=== PATIENT | female | born 1990 | race Caucasian/White ===

== ENCOUNTER 2018-02-10 06:51 | Day surgery (SDC) | payer OTHER ==
[2018-02-06 09:36] LABS: HEMOGLOBIN 13.8 g/dL (12.0-15.5); MEAN CORPUSCULAR HEMOGLOBIN 27.7 pg (27.0-33.4); MEAN CORPUSCULAR HGB CONC 33.6 g/dL (32.0-36.0); MEAN CORPUSCULAR VOLUME 82 fl (80-97); PLATELET COUNT 294 10^3/uL (150-450); RED BLOOD COUNT 4.97 10^6/uL (3.72-5.28); RED CELL DISTRIBUTION WIDTH 14.4 % (11.5-14.0); WHITE BLOOD COUNT 6.2 10^3/uL (4.0-10.5)
[~2018-02-10 06:51] MED LIST: ACETAMINOPHEN 325 MG TABLET PO PRN; DEXAMETHASONE SOD PHOSPHATE INJ 4 MG/1 ML VIAL ONE; FENTANYL CITRATE INJ/PF 100 MCG/2 ML AMPUL ONE; LACTATED RINGERS 1000 ML IV PRN; LIDOCAINE 0.5% INJ-PF (5 MG/ML) 50 ML SDV SUBCUT PRN; LIDOCAINE 2% INJ-PF (20 MG/ML) 10 ML AMPUL ONE; MIDAZOLAM 2 MG/2 ML INJ ONE; ONDANSETRON HCL INJ/PF 4 MG/2 ML SDV ONE; PROPOFOL INJ 200 MG/20 ML VIAL IV ONE
[2018-02-10] MEDS ORDERED: FENTANYL CITRATE INJ/PF 100 MCG/2 ML AMPUL IV PRN ×3 (11:02)
[2018-02-10] MEDS ORDERED: MORPHINE SULFATE 10 MG/ML INJ IV PRN (11:02)
[2018-02-10] MEDS ORDERED: ONDANSETRON HCL INJ/PF 4 MG/2 ML SDV IV PRN (11:02)
[2018-02-10] MEDS ORDERED: PROMETHAZINE HCL INJ 25 MG/1 ML VIAL IV PRN ×2 (11:02)
[2018-02-10] MEDS ORDERED: MEPERIDINE HCL/PF INJ 25 MG/1 ML DISP.SYRIN IV PRN (11:02)
[2018-02-10] MEDS ORDERED: DIPHENHYDRAMINE HCL 50 MG/ML VIAL IV PRN (11:02)
--- NOTE | 2018-02-10 11:26 | Discharge Summary ---
Discharge Summary (SDC) - Discharge Final Diagnosis: internal hemorrhoids, chronic constipation Date of Surgery: 02/10/18 Discharge Date: 02/10/18 Condition: Stable Referrals: RAN LAL [Primary Care Provider] - Discharge Diet: As Tolerated Respiratory Treatments at Home: Deep Breathing/Coughing, Incentive Spirometer Discharge Activity: Activity As Tolerated Home Care Assistance: None Needed Report the Following to Your Physician Immediately: Shortness of Breath, Nausea , Vomiting, Increase in Pain, Fever over 101 Degrees, Unusual Bleeding
--- NOTE | 2018-02-10 11:29 | Operative Report ---
Nonrecallable Operative Report DATE OF SURGERY: 02/10/18 PREOPERATIVE DIAGNOSIS: 1 chronic constipation #2 prolapsing internal hemorrhoids. POSTOPERATIVE DIAGNOSIS: Same as above OPERATION: 1. Aborted colonoscopy (to 90 cm). 2. Rubber band ligation of internal hemorrhoids 4 SURGEON: JONATHAN VERONICA ANESTHESIA: LMAC TISSUE REMOVED OR ALTERED: None COMPLICATIONS: None apparent ESTIMATED BLOOD LOSS: Minimal PROCEDURE: Drains/implants: None. Procedure in detail: After informed consent was obtained, the patient was laid in the left lateral decubitus position in the operating room. The endoscope was passed up the rectum and sigmoid colon. There was a large amount of retained solid stool present. The prep was inadequate. The scope was pushed up to 90 cm where even more hard, solid stool was present. At this point the colonoscopy was aborted due to failed prep. Scope was withdrawn and removed. Attention was then turned to rubber band ligation of the internal hemorrhoids. There were enlarged hemorrhoids in the right posterior, right anterior, and left lateral columns. The worst enlargement was in the right posterior position. 4 internal hemorrhoids were banded using the rubber band ligation device. Once this was completed, the endoscope was removed, and the procedure was concluded. Condition: Stable.
[2018-02-10] MEDS ORDERED: LIDOCAINE 5% OINTMENT 35.44 GM TP SCH (14:00)
[2018-02-10 14:41] VITALS: BP 121/71
== END 2018-02-10 13:20 | disposition home or self-care (01) ==
LOC: OROUT 06:51
PROVIDERS: ATTEND Surgery
DX: K59.00 Constipation, unspecified (principal); K64.8 Other hemorrhoids; R00.2 Palpitations; Z79.899 Other long term (current) drug therapy
CPT/HCPCS: 36415; 85027; 81025; 46945; 45378; J2250; J1100; J3010; J3490 ×2; J2405; J2704; 811